=== PATIENT | male | born 1995 | race Caucasian/White ===

== ENCOUNTER 2022-08-26 12:11 | Emergency (ER) | payer OTHER, SELFPAY ==
[2022-08-26 13:30] VITALS: BP 130/69; PULSE 71; RESP 16; TEMP 36.7; O2SAT 99
--- NOTE | 2022-08-26 14:52 | ED.URI ---
HPI - URI/Sore Throat General Chief Complaint: Upper Respiratory Infection Stated Complaint: Cough Time Seen by Provider: 08/26/22 14:52 Source: patient, RN notes reviewed and old records reviewed Mode of arrival: ambulatory Limitations: no limitations History of Present Illness HPI Narrative: 26-year-old male who presents to [facility] with complaints of persistent cough since the 07 of August. Patient states he states he has also had some sinus drainage, denies any fevers, chills, or sweats, or body aches.Patient reports that he has had COVID vaccinations, no flu shot this year. Patient reports that he has been taking DayQuil and NyQuil and also has been using OTC cough syrup. MD elicited complaint: cough, rhinorrhea and nasal congestion Related Data Allergies Allergy/AdvReac Type Severity Reaction Status Date / Time Penicillins Allergy Unknown Verified 08/26/22 14:05 Review of Systems Review of Systems: CONSTITUTIONAL: Denies malaise, chills, sweats, or fever. EYES: Denies visual changes, redness, or discharge. ENT: Reports rhinorrhea, congestion, sinus pain,no otalgia, no sore throat. CARDIOVASCULAR: Denies chest pain, palpitations, or edema. RESPIRATORY: Reports persistent cough.? Denies dyspnea. GASTROINTESTINAL: Denies abdominal pain, nausea, vomiting, diarrhea SKIN: Denies rash or itching. MUSCULOSKELETAL: Denies myalgia. NEUROLOGIC: Denies headache. All systems reviewed & are unremarkable except as noted in HPI and below PMFSH Past Medical History Medical History (Updated 09/01/22 @ 09:33 by Tosha Barone NP) Acne Otitis media Surgical History Surgical History (Updated 09/01/22 @ 09:29 by Tosha Barone NP) History of placement of ear tubes History of tonsillectomy Social History Social History (Updated 09/01/22 @ 09:32 by Tosha Barone NP) Smoking status: Never smoker Alcohol intake: unknown Substance use: unknown Gender identity (if verbalized by the patient): Male Comments At time of signature, agree with nursing past medical, surgical, social and family history. There is no relevant family history pertinent to the presenting complaint Exam Narrative: GENERAL: Well-appearing, well-nourished, and in no acute distress. HEAD: Normocephalic EYES: PERRLA, conjunctivae clear ENT: Nares clear, turbinates edematous and erythematous, clear discharge. Mucous membranes moist. TM pearly wilkins with dull light reflex bilaterally; no tragal tenderness. Oropharynx erythematous without lesions. Tonsils not enlarged and without exudate, no drooling, no hoarseness, no trismus, uvula midline. NECK: Supple. No lymphadenopathy CHEST: Clear to auscultation, breath sounds equal. No wheezing, rhonchi, rales, or stridor. No respiratory distress, speaks in full sentences. HEART: Regular rate and rhythm. No murmur heard. SKIN: Warm, dry, no rash. NEURO: Alert and oriented x3. PSYCH: Normal mood and affect Course Course Emergency Course: Patient is aware of diagnosis, understands and agrees to treatment plan.? Anticipatory guidance given.? Patient agrees to follow-up as directed and is aware of reasons to seek care at the emergency department. Portions of this record may have been created with voice recognition software Level of Care: Express Care Visit Vital Signs Vital signs: Vital Signs Temperature 36.7 C 08/26/22 13:30 Pulse Rate 71 08/26/22 13:30 Respiratory Rate 16 08/26/22 13:30 Blood Pressure 130/69 08/26/22 13:30 Pulse Oximetry 99 08/26/22 13:30 Oxygen Delivery Room Air 08/26/22 13:30 Temperature 36.7 C 08/26/22 13:30 Pulse Rate 71 08/26/22 13:30 Respiratory Rate 16 08/26/22 13:30 Blood Pressure 130/69 08/26/22 13:30 Pulse Oximetry 99 08/26/22 13:30 Oxygen Delivery Room Air 08/26/22 13:30 Reviewed MDM - URI/Sore Throat MDM Narrative Medical decision making narrative: Differential diagnosis con
== END 2022-08-26 15:10 | disposition home or self-care (01) ==
PROVIDERS: Emergency Provider Registered Nurse
DX: J32.9 Chronic sinusitis, unspecified (principal); R05.9 Cough, unspecified
CPT/HCPCS: 99203; G0463

== ENCOUNTER 2022-12-30 08:38 | Emergency (ER) | payer OTHER, SELFPAY ==
[2022-12-30 08:44] VITALS: BP 124/66; PULSE 77; RESP 18; TEMP 36.4; O2SAT 96
--- NOTE | 2022-12-30 08:52 | ED.URI ---
HPI - URI/Sore Throat General Chief Complaint: Upper Respiratory Infection Stated Complaint: Sore Throat Time Seen by Provider: 12/30/22 08:52 History of Present Illness HPI Narrative: Patient presents with a sore throat no trouble swallowing no drooling does have nasal congestion no cough no fever has not take anything [id number] for symptoms Related Data Home Medications Medication Instructions Recorded Confirmed No Home Medications 12/30/22 12/30/22 Allergies Allergy/AdvReac Type Severity Reaction Status Date / Time Penicillins Allergy Unknown Verified 12/30/22 08:57 Review of Systems Review of Systems: CONSTITUTIONAL: Denies chills, or sweats. Reports fever and generalized body aches EYES: Denies visual changes, redness, or discharge. ENT: Denies otalgia. Reports nasal congestion runny nose and sore throat CARDIOVASCULAR: Denies chest pain, palpitations, or edema. RESPIRATORY: Denies dyspnea. Reports occasional cough GASTROINTESTINAL: Denies abdominal pain, nausea, vomiting, or diarrhea. GENITOURINARY: Denies dysuria or hematuria. SKIN: Denies rash or itching. MUSCULOSKELETAL: Denies back pain, joint pain, or myalgia. Reports generalized body aches NEUROLOGIC: Denies headache, numbness, or weakness. PSYCHIATRIC: Denies anxiety or depression. [facility] Past Medical History Medical History (Updated 12/30/22 @ 08:58 by JOEY Pena) Acne Otitis media Surgical History Surgical History (Updated 09/01/22 @ 09:29 by Tosha Barone NP) History of placement of ear tubes History of tonsillectomy Social History Social History (Updated 09/01/22 @ 09:32 by Tosha Barone NP) Smoking status: Never smoker Alcohol intake: unknown Substance use: unknown Gender identity (if verbalized by the patient): Male Comments At time of signature, agree with nursing past medical, surgical, social and family history. There is no relevant family history pertinent to the presenting complaint Exam Narrative: The patient is a well-developed, well-nourished in no acute distress. SKIN: Skin is warm and dry without erythema, swelling or exudate. There is good turgor. No tenting. HEAD: Atraumatic. Normocephalic. No temporal or scalp tenderness. EYES: Moist and bright. Sclera and conjunctivae normal. No discharge. PERRLA. Extraocular motions intact. Gross visual acuity intact. EARS: Pinna is normal shape and contour. Clear external auditory canals. TM pearly echeverria with good cone of light, no erythema or suppuration. Bilateral cerumen noted no gross hearing deficit. NOSE: pink, moist mucosa with good air movement. Clear rhinorrhea without nasal flaring. Septum midline. Mouth: moist mucous membranes. THROAT; mild erythema noted to posterior oropharynx with moderate postnasal drainage. Without exudate or ulceration.. Uvula midline. Normal movement of soft palate. NECK: Supple and nontender with full range of motion without discomfort. No meningeal signs. LUNGS: Equal and bilateral breath sounds without wheezes, rales or rhonchi. CHEST: The chest wall is without retractions or use of accessory muscles. HEART: Has a regular rate and rhythm without murmur, gallops, click or rub. ABDOMEN: Soft, nontender with positive active bowel sounds. No rebound tenderness. EXTREMITIES: Without cyanosis, clubbing or edema. Equal 2+ distal pulses and 2 second capillary refill noted. NEUROLOGIC: alert, active, . The patient moves all extremities with normal muscle strength. Normal muscle tone is noted. Normal coordination is noted. NO focal neurological findings noted. Course Course Level of Care: Express Care Visit Vital Signs Vital signs: Vital Signs Temperature 36.4 C L 12/30/22 08:44 Pulse Rate 77 12/30/22 08:44 Respiratory Rate 18 12/30/22 08:44 Blood Pressure 124/66 12/30/22 08:44 Pulse Oximetry 96 12/30/22 08:44 Oxygen Delivery Room Air 12/30/22 08:44 Temperature 36.4 C L 12/30/22 08:44
== END 2022-12-30 09:07 | disposition home or self-care (01) ==
PROVIDERS: Emergency Provider Nurse Practitioner Family
DX: J06.9 Acute upper respiratory infection, unspecified (principal); J02.9 Acute pharyngitis, unspecified; B34.9 Viral infection, unspecified
CPT/HCPCS: 87081; 87880; 99213; G0463